=== PATIENT | female | born 1960 | race Two or more races ===

== ENCOUNTER 2024-11-12 12:21 | Inpatient (IN) | payer OTHER ==
[~2024-11-12] VITALS: Ht 165.1 cm; Wt 107.5 kg
[2024-11-12 07:45] VITALS: PULSE 92; RESP 17; O2SAT 99
--- NOTE | 2024-11-12 12:37 | ED.PDOC ---
History of Present Illness HPI Comments 64-year-old female brought in by EMS presents with a chief complaint of abdominal pain with associated nausea and vomiting. Patient states that her pain is localized to her right quadrant abdomen region, non-radiating, non- exertional, and states that her pain is rated a burning 10/10 at this time. Patient mentions that onset of abdominal pain started at 0300 this morning. Patient mentions that she has had some nausea and vomiting episodes since the pain started. Time Seen by MD: 12:25 Reviewed Notes: Medications, Allergies Allergies: Coded Allergies: No Known Drug Allergy (Verified Allergy, Unknown, 11/12/24) Information Source: Patient, Emergency Med Personnel Mode of Arrival: EMS Severity: Moderate Timing: Hours Duration: Since onset Prehospital treatment: Shoes Salesperson Past Medical History PAST MEDICAL HISTORY: PE Surgical History: Denies all surgeries PUBLIC HEALTH ASSISTANT History: Denies all PUBLIC HEALTH ASSISTANT Hx Family History Family History: Reviewed,noncontributory to illness Social History Smoker: Non-Smoker Alcohol: Denies ETOH Use Drugs: Denies Drug Use Lives In: Home Constitutional: denies: chills, diaphoresis, fatigue, fever, malaise, sweats, weakness, others EENTM: denies: blurred vision, double vision, ear bleeding, ear discharge, ear drainage, ear pain, ear ringing, eye pain, eye redness, hearing loss, mouth pain, mouth swelling, nasal discharge, nose bleeding, nose congestion, nose pain, photophobia, tearing, throat pain, throat swelling, voice changes, others Respiratory: denies: cough, hemoptysis, orthopnea, SOB at rest, shortness of breath, SOB with excertion, stridor, wheezing, others Cardiovascular: denies: chest pain, dizzy spells, diaphoresis, Dyspnea on exertion, edema, irregular heart beat, left arm pain, lightheadedness, palpitations, PND, syncope, others Gastrointestinal: reports: abdominal pain, nausea, vomiting; denies: abdomen distended, blood streaked bowels, constipated, diarrhea, dysphagia, difficulty swallowing, hematemesis, melena, poor appetite, poor fluid intake, rectal bleeding, rectal pain, others Genitourinary: denies: abnormal vagina bleeding, burning, dyspareunia, dysuria, flank pain, frequency, hematuria, incontinence, pain, , vagina discharge, urgency, others Neurological: denies: dizziness, fainting, headache, left sided numbness, left sided weakness, numbness, paresthesia, pre-existing deficit, right sided numbness, right sided weakness, seizure, speech problems, tingling, tremors, weakness, others Musculoskeletal: denies: back pain, gout, joint pain, joint swelling, muscle pain, muscle stiffness, neck pain, others Integumetry: denies: bruises, change in color, change in hair/nails, dryness, laceration, lesions, lumps, rash, wounds, others Allergic/Immunocompromised: denies: Difficulty Healing, Frequent Infections, Hives, Itching, others Hematologic/Lymphatic: denies: anemia, blood clots, easy bleeding, easy bruising, swollen glands, others Endocrine: denies: excessive hunger, excessive sweating, excessive thirst, excessive urination, flushing, intolerance to cold, intolerance to heat, unexplained weight gain, unexplained weight loss, others Psychiatric: denies: anxiety, bipolar disorder, depression, hopeless, panic disorder, schizophrenia, sleepless, suicidal, others All Other Systems: Reviewed and Negative Physical Exam General Appearance: Moderate Distress, Normal HEENT: Normal ENT Inspection, Pharynx Normal, TMs Normal Neck: Full Range of Motion, Non-Tender, Normal, Normal Inspection Respiratory: Chest Non-Tender, Lungs Clear, No Accessory Muscle Use, No Respiratory Distress, Normal Breath Sounds Cardiovascular: No Edema, No JVD, No Murmur, No Gallop, Normal Peripheral Pulses, Regular Rate/Rhythm Breast Exam: Deferred Gastrointestinal: Diffuse, No Organomegaly, No Pulsatile Mass, Normal Bowel Sounds, Soft Genitalia: Deferred Pelvic: Deferred Rectal: Deferred Extremities: No calf tenderness, Normal capillary refill, Normal inspection, Normal range of motion, Non-tender, No pedal edema Musculoskeletal : Apperance: Normal Neurologic: Alert, nautical instrument mechanic II-XII nml as Tested, No Motor Deficits, Normal Affect, Normal Mood, No Sensory Deficits Cerebellar Function: NOT DONE Reflexes: NOT DONE Skin: Dry, Normal Color, Warm Peripheral Pulses: 3+ Radial (R), 3+ Radial (L) Lymphatic: No Adenopathy Was a procedure done? Was a procedure done?: No Differential Dx Considerations may include: Colitis Electrolyte imbalance X-Ray, Labs, Meds, VS Vital Signs Date Time Temp Pulse Resp B/P (MAP) Pulse Ox O2 Delivery O2 Flow Rate FiO2 11/12/24 14:11 111 18 109/61 11/12/24 14:01 111 18 98 Room Air 11/12/24 14:01 98.7 78 18 109/61 (77) 98 98.7 11/12/24 12:51 98.6 96 27 148/89 99 98.6 Lab Test 11/12/24 16:11 11/12/24 16:03 11/12/24 14:36 11/12/24 12:42 Range/Units Urine Color Pending Urine Clarity Pending Urine pH Pending Urine Specific [place] Pending Urine Protein Pending Urine Ketones Pending Urine Blood Pending Urine Nitrite Pending Urine Bilirubin Pending Urine Urobilinogen Pending Urine Leukocyte Esterase Pending Urine Glucose Pending Lactic Acid Level 3.1 *H 3.7 *H 0.4-2.0 mmol/L White Blood Count 17.0 H 4.4-10.8 10^3/uL Red Blood Count 4.78 4.0-5.20 10^6/uL Hemoglobin 15.6 12.2-16.2 g/dL Hematocrit 46.3 H 36.0-46.0 % Mean Corpuscular Volume 96.9 80.0-100.0 fL Mean Corpuscular Hemoglobin 32.6 H 28.0-32.0 pg Mean Corpuscular Hemoglobin Concent 33.6 32.0-36.0 g/dL Red Cell Distribution Width 15.7 H 11.8-14.3 % Platelet Count 375 140-450 10^3/uL Mean Platelet Volume 7.9 6.9-10.8 fL Neutrophils (%) (Auto) 91.6 H 37.0-80.0 % Lymphocytes (%) (Auto) 5.0 L 10.0-50.0 % Monocytes (%) (Auto) 3.2 0.0-12.0 % Eosinophils (%) (Auto) 0.1 0.0-7.0 % Basophils (%) (Auto) 0.1 0.0-2.0 % Neutrophils # (Auto) 15.6 H 1.6-8.6 10 ^3/uL Lymphocytes # (Auto) 0.9 0.4-5.4 10 ^3/uL Monocytes # (Auto) 0.5 0-1.3 10 ^3/uL Eosinophils # (Auto) 0 0-0.8 10 ^3/uL Basophils # (Auto) 0 0-0.2 10 ^3/uL Nucleated Red Blood Cells 0.0 % Prothrombin Time 10.9 9.3-11.8 sec Prothrombin Time INR 1.03 0.9-1.15 Sodium Level 139 136-145 mmol/L Potassium Level 3.4 L 3.5-5.1 mmol/L Chloride Level 103 98-107 mmol/L Carbon Dioxide Level 19 L 20-31 mmol/L Anion Gap 17 H 5-15 Blood Urea Nitrogen 8 L 9-23 mg/dL Creatinine 1.08 H 0.550-1.02 mg/dL Glomerular Filtration Rate Calc 57 >90 mL/min BUN/Creatinine Ratio 7.4 L 10.0-20.0 Serum Glucose 156 H 74-106 mg/dL Calcium Level 9.4 8.7-10.4 mg/dL Current Medications Medications (Trade) Dose Ordered Sig/Cindy Route Start Time Stop Time Status Last Admin Morphine Sulfate 4 mg ONCE ONCE IV 11/12/24 12:30 11/12/24 12:31 DC 11/12/24 14:11 Ondansetron HCl (Zofran) 4 mg ONCE ONCE IV 11/12/24 12:30 11/12/24 12:31 DC 11/12/24 14:10 Sodium Chloride 1,000 ml @ 1,000 mls/hr Q1H ONCE IV 11/12/24 14:30 11/12/24 15:29 DC 11/12/24 15:18 Piperacillin Sod/ Tazobactam Sod 100 ml @ 100 mls/hr ONCE ONCE IV 11/12/24 14:30 11/12/24 15:29 DC 11/12/24 14:30 Metronidazole 100 ml @ 100 mls/hr ONCE ONCE IV 11/12/24 15:15 11/12/24 16:14 DC 11/12/24 15:18 Patient alert. Complaining of abdominal pain. Abdomen is soft tender. Vitals stable. Establish intravenous access. Was given morphine. Was given Zofran. Explained to the patient. Continue monitoring. Surgeon at bedside. She is more tender than when she two the ER. Localized in the right lower quadrant. Surgeon did state that she needs to have the appendix removed. She is going to be taken to the OR for appendectomy. Preparing the patient NPO coagulation studies. Patient unstable for transfer because has a possible dependence can rupture. She has localized. Patient he is aware of her current situation. [place] approved inpatient admission [id number]. Time of 1ST Reevaluation: 12:55 Reevaluation 1ST: Unchanged Patient Education/Counseling: Diagnosis, Treatment, Need For Follow Up Family Education/Counseling: No Family Present SEPSIS Sepsis Screen Physician Orders Ct Ab Pel Wo Con-No Oral Or Iv (11/12/24 12:28) Electrocardigram (11/12/24 12:40) Sodium Chloride 0.9% (11/12/24 14:30) Blood Culture (11/12/24 14:24) * Surgical Consult (11/12/24 ) Urinalysis W/Out Microscopic (11/12/24 16:11) Npo (Nothing By Mouth) Diet (11/12/24 Dinner) Obtain Consent For: (11/12/24 16:27) Obtain Consent For Anesthesia (11/12/24 16:27) Vital Signs Date Time Temp Pulse Resp B/P (MAP) Pulse Ox O2 Delivery O2 Flow Rate FiO2 11/12/24 14:11 111 18 109/61 11/12/24 14:01 111 18 98 Room Air 11/12/24 14:01 98.7 78 18 109/61 (77) 98 98.7 11/12/24 12:51 98.6 96 27 148/89 99 98.6 Laboratory Tests Test 11/12/24 12:42 11/12/24 14:36 11/12/24 16:03 White Blood Count 17.0 10^3/uL (4.4-10.8) H Lactic Acid Level 3.7 mmol/L (0.4-2.0) *H 3.1 mmol/L (0.4-2.0) *H Medications Medications Dose Ordered Sig/Cindy Route Start Time Stop Time Status Last Admin Dose Admin Metronidazole 100 ml @ 100 mls/hr ONCE ONCE IV 11/12/24 15:15 11/12/24 16:14 DC 11/12/24 15:18 Morphine Sulfate 4 mg ONCE ONCE IV 11/12/24 12:30 11/12/24 12:31 DC 11/12/24 14:11 Ondansetron HCl 4 mg ONCE ONCE IV 11/12/24 12:30 11/12/24 12:31 DC 11/12/24 14:10 Piperacillin Sod/ Tazobactam Sod 100 ml @ 100 mls/hr ONCE ONCE IV 11/12/24 14:30 11/12/24 15:29 DC 11/12/24 14:30 Sodium Chloride 1,000 ml @ 1,000 mls/hr Q1H ONCE IV 11/12/24 14:30 11/12/24 15:29 DC 11/12/24 15:18 Departure 1 Departure Time of Disposition: 12:39 Impression: Primary Impression: Sepsis, unspecified organism Qualified Codes: A41.9 - Sepsis, unspecified organism Additional Impressions: Acute abdominal pain Acute appendicitis Qualified Codes: K35.80 - Unspecified acute appendicitis Disposition: ADMITTED INPATIENT Admit to: Med Surg Condition: Guarded Critical Care Note Critical Care Time?: No Stability Stability form required: No Heart Score Heart Score: Heart Score Response (Comments) Value History N/A 0 EKG N/A 0 Age N/A 0 Risk Factors N/A 0 Troponin N/A 0 Total 0 I personally scribed for JULIANA TRAVIS MD ([email or web address]) on 11/12/24 at 12:37. Electronically submitted by Christos Montemayor ([email or web address]). JULIANA TRAVIS MD Nov 12, 2024 12:37
[2024-11-12 12:56] LABS: Hematocrit 46.3 % (36.0-46.0); Hemoglobin 15.6 g/dL (12.2-16.2); Mean Corpuscular Hemoglobin 32.6 pg (28.0-32.0); Mean Corpuscular Volume 96.9 fL (80.0-100.0); Nucleated Red Blood Cells % 0.0 %
[2024-11-12 13:06] LABS: Chloride 103 mmol/L (98-107); Potassium 3.4 mmol/L (3.5-5.1); Sodium 139 mmol/L (136-145)
[2024-11-12 13:07] LABS: Anion Gap 17 (5-15); Calcium 9.4 mg/dL (8.7-10.4)
[2024-11-12 13:08] LABS: Carbon Dioxide 19 mmol/L (20-31)
[2024-11-12 13:12] LABS: BUN/Creatinine Ratio 7.4 (10.0-20.0)
[2024-11-12 13:13] LABS: Blood Urea Nitrogen 8 mg/dL (9-23); Glucose 156 mg/dL (74-106)
[2024-11-12] MEDS: ONDANSETRON HCL 4 MG/2 ML VIAL IV ONE (14:10)
[2024-11-12] MEDS: MORPHINE SULFATE 4 MG/ML SYR/VIAL IV ONE ×2 (14:11→19:42)
[2024-11-12] MEDS: SODIUM CHLORIDE 0.9% 1,000 ML IV ONE ×3 (14:30→20:56)
[2024-11-12] MEDS: PIPERACILLIN-TAZOB 3.375GM 100 ML IV ONE (14:30)
[2024-11-12 15:10] LABS: Lactic Acid w/Reflex 3.7 mmol/L (0.4-2.0)
--- NOTE | 2024-11-12 15:12 | DVH ---
Indication: severeepigastrictenderness Technique: CT axial images of the abdomen and pelvis are obtained without contrast. Coronal and sagit arlene reformats were obtained. Radiation Dose Information: CTDI volume is 22.25 mGy. Dose-length product is 1287.77 mGy*cm Comparison: None FINDINGS: There is limited interpretation of the abdomen and pelvis without administration of intravenous contr ast. Lung bases demonstrate pulmonary emphysematous changes. Bilateral atelectasis. Adrenal glands, spleen, pancreas, liver unremarkable in shape. No CT evidence for cholelithiasis. There is no hydronephrosis, nephrolithiasis. The stomach is partially distended. Small bowel loops are normal in caliber. Moderate volume stool in the colon. The appendix is enlarged measuring 9 mm in diameter. Periappendi ceal stranding. Abdominal aortic atherosclerotic disease. Bladder partially distended. Calcified uterine leiomyomas. Right ovarian / adnexal cystic lesion measuring 5.7 cm. No free pelvic fluid. No inguinal lymphaden opathy. Chronic L3 compression fracture deformity 40% loss height. Moderate thoracolumbar degenerative disc disease IMPRESSION: Limited evaluation without contrast. Acute appendicitis. Right ovarian cystic lesion measuring 5.7 cm. Recommend pelvic ultrasound to evaluate. Findings communicated to charge nurse Kerry at 3:13 p.m. On 11/12/2024.
--- NOTE | 2024-11-12 16:27 | DVHINCON2 ---
Date of service: Nov 12, 2024 Allergies: Coded Allergies: No Known Drug Allergy (Verified Allergy, Unknown, 11/12/24) Vital Signs Vital Signs Date Time Temp Pulse Resp B/P (MAP) Pulse Ox O2 Delivery O2 Flow Rate FiO2 11/12/24 14:11 111 18 109/61 11/12/24 14:01 98 Room Air 11/12/24 14:01 98.7 98.7 Labs/Diagnostic Data Labs Test 11/12/24 16:11 11/12/24 16:03 11/12/24 12:42 11/12/24 12:28 Range/Units White Blood Count 17.0 H 4.4-10.8 10^3/uL Red Blood Count 4.78 4.0-5.20 10^6/uL Hemoglobin 15.6 12.2-16.2 g/dL Hematocrit 46.3 H 36.0-46.0 % Mean Corpuscular Volume 96.9 80.0-100.0 fL Mean Corpuscular Hemoglobin 32.6 H 28.0-32.0 pg Mean Corpuscular Hemoglobin Concent 33.6 32.0-36.0 g/dL Red Cell Distribution Width 15.7 H 11.8-14.3 % Platelet Count 375 140-450 10^3/uL Mean Platelet Volume 7.9 6.9-10.8 fL Neutrophils (%) (Auto) 91.6 H 37.0-80.0 % Lymphocytes (%) (Auto) 5.0 L 10.0-50.0 % Monocytes (%) (Auto) 3.2 0.0-12.0 % Eosinophils (%) (Auto) 0.1 0.0-7.0 % Basophils (%) (Auto) 0.1 0.0-2.0 % Neutrophils # (Auto) 15.6 H 1.6-8.6 10 ^3/uL Lymphocytes # (Auto) 0.9 0.4-5.4 10 ^3/uL Monocytes # (Auto) 0.5 0-1.3 10 ^3/uL Eosinophils # (Auto) 0 0-0.8 10 ^3/uL Basophils # (Auto) 0 0-0.2 10 ^3/uL Nucleated Red Blood Cells 0.0 % Sodium Level 139 136-145 mmol/L Potassium Level 3.4 L 3.5-5.1 mmol/L Chloride Level 103 98-107 mmol/L Carbon Dioxide Level 19 L 20-31 mmol/L Anion Gap 17 H 5-15 Blood Urea Nitrogen 8 L 9-23 mg/dL Creatinine 1.08 H 0.550-1.02 mg/dL Glomerular Filtration Rate Calc 57 >90 mL/min BUN/Creatinine Ratio 7.4 L 10.0-20.0 Serum Glucose 156 H 74-106 mg/dL Calcium Level 9.4 8.7-10.4 mg/dL Assessment [id number] RLQ PAIN AC APPENDICITIS ON ANTICOAGULATION FOR DVT DID NOT TAKE BLOOD THINNER TODAY CONSIDER EMERGENT SURGERY BENEFITS RISKS DISCUSSED PT CONSENTS Plan discussed with: Patient CLAUDIA NUNN MD Nov 12, 2024 16:27
[2024-11-12 16:49] LABS: INR 1.03 (0.9-1.15); Prothrombin Time 10.9 sec (9.3-11.8)
--- NOTE | 2024-11-12 16:55 | DVHINCON2 ---
DATE OF CONSULTATION: 11/12/2024 HISTORY OF PRESENT ILLNESS: This patient is referred to me from the Emergency Room with right lower quadrant pain starting this morning. She has some nausea and vomiting. No constipation or diarrhea. No hematemesis or melena. No bleeding per rectum. No fever or chills. PAST MEDICAL HISTORY: PE. PAST SURGICAL HISTORY: No significant surgical history. PHYSICAL EXAMINATION: VITAL SIGNS: Afebrile. Stable signs. HEENT: With no evidence of pallor, cyanosis, or jaundice. NECK: Supple, nontender with no thyromegaly or lymphadenopathy. CHEST AND LUNGS: Clear. HEART: Within normal limits. ABDOMEN: Soft. Tender in the right lower quadrant with evidence of rebound. EXTREMITIES: Unremarkable. NEUROLOGIC: Intact. CLINICAL IMPRESSION: Acute appendicitis, confirmed radiologically as well. PLAN: Needs to consider laparoscopic possible open appendectomy and the benefits and risks have been discussed. She also is on a blood thinner Xarelto, but she did not take the Xarelto for the last 2 days and the plan would be to consider surgery emergently. MD ALFONSO Magaña/BILLIE TID: [id number] RECEIPT: [id number] cc: Jhon Alejandro MD
[2024-11-12 18:24] VITALS: PULSE 87; RESP 18; O2SAT 98
[2024-11-12] MEDS ORDERED: ONDANSETRON HCL 4 MG/2 ML VIAL IV PRN (19:15)
[2024-11-12 19:31] VITALS: PULSE 92; RESP 14; O2SAT 97
--- NOTE | 2024-11-12 19:42 | DVH ---
CHEST RADIOGRAPH Indication: preop Technique: Single frontal view of the chest was obtained Comparison: None FINDINGS: Lines and Tubes: None Lungs: Poor inspiratory effort Pleura: No effusion. No pneumothorax. Cardiomediastinal contours: Unremarkable Bones: No acute osseous abnormality. IMPRESSION: 1. No acute cardiopulmonary disease.
[2024-11-12] MEDS: PANTOPRAZOLE 40 MG/10 ML VIAL INJ IV ONE (20:55)
--- NOTE | 2024-11-12 21:24 | DVHHP2 ---
History of Present Illness Reason for Visit: Abdominal pain History of Present Illness 64-year-old female presents for evaluation of abdominal pain. Patient endorses a one day history of sharp right lower quadrant abdominal pain with associated nausea, vomiting and chills. Currently rates the pain at 7/10 intensity. Past Medical History Pulmonary embolism Past Surgical History Denies Family History Noncontributory Smoke: No ALCOHOL: none Drugs: None Lives: with Family Review of Systems Review of Systems Review of systems are currently negative otherwise addressed in HPI. Allergies: Coded Allergies: No Known Drug Allergy (Verified Allergy, Unknown, 11/12/24) Medications Current Medications Medications Dose Ordered Sig/Cindy Route Start Time Stop Time Status Last Admin Dose Admin Metronidazole 100 ml @ 100 mls/hr Q8HR IV 11/12/24 22:00 Ceftriaxone Sodium 50 ml @ 100 mls/hr DAILY@09 IV 11/13/24 09:00 Pantoprazole Sodium 40 mg DAILY IV 11/13/24 10:00 Ondansetron HCl 4 mg Q4HP PRN IV 11/12/24 19:15 Morphine Sulfate 2 mg Q4HPRN PRN IV 11/12/24 19:15 Exam Vital Signs Vital Signs Date Time Temp Pulse Resp B/P (MAP) Pulse Ox O2 Delivery O2 Flow Rate FiO2 11/12/24 19:31 92 14 97 Room Air* 0 21 11/12/24 19:31 98.5 132/66 (88) 98.5 Exam Gen: 64-year-old female in mild distress Skin: Warm, dry, normal color and texture, no rash. HEENT: Normocephalic atraumatic, mucous membranes moist and pink. Neck: Cervical and supraclavicular nodes normal without enlargement, trachea is midline, thyroid gland is normal without masses. Pulmonary: Clear to auscultation and percussion bilaterally. Cardiac: Regular rate and rhythm. No murmur Abdomen: Soft, n right lower quadrant tenderness, nondistended, bowel sounds present all 4 quadrants, no guarding, no rigidity, no organomegaly. Extremities: No cyanosis, clubbing, no edema Neuro: Cranial nerves II through XII grossly intact, normal affect and speech, no focal motor deficits. Labs/Xrays ORDERING PHYSICIAN: BECCA LEWIS PROCEDURE(s): CXR1 - CHEST XRAY 1 VIEW REASON: preop ORDER NUMBER(s): [id number], ACCESSION NUMBER(s): [id number] CHEST RADIOGRAPH Indication: preop Technique: Single frontal view of the chest was obtained Comparison: None FINDINGS: Lines and Tubes: None Lungs: Poor inspiratory effort Pleura: No effusion. No pneumothorax. Cardiomediastinal contours: Unremarkable Bones: No acute osseous abnormality. IMPRESSION: 1. No acute cardiopulmonary disease. RING PHYSICIAN: JULIANA TRAVIS MD PROCEDURE(s): ABPL - CT AB PEL WO CON-NO ORAL OR IV REASON: severeepigastrictenderness ORDER NUMBER(s): [id number], ACCESSION NUMBER(s): [id number] Indication: severeepigastrictenderness Technique: CT axial images of the abdomen and pelvis are obtained without contrast. Coronal and sagittal reformats were obtained. Radiation Dose Information: CTDI volume is 22.25 mGy. Dose-length product is 1287.77 mGy*cm Comparison: None FINDINGS: There is limited interpretation of the abdomen and pelvis without administration of intravenous contrast. Lung bases demonstrate pulmonary emphysematous changes. Bilateral atelectasis. Adrenal glands, spleen, pancreas, liver unremarkable in shape. No CT evidence for cholelithiasis. There is no hydronephrosis, nephrolithiasis. The stomach is partially distended. Small bowel loops are normal in caliber. Moderate volume stool in the colon. The appendix is enlarged measuring 9 mm in diameter. Periappendiceal stranding. Abdominal aortic atherosclerotic disease. Bladder partially distended. Calcified uterine leiomyomas. Right ovarian / adnexal cystic lesion measuring 5.7 cm. No free pelvic fluid. No inguinal lymphadenopathy. Chronic L3 compression fracture deformity 40% loss height. Moderate thoracolumbar degenerative disc disease IMPRESSION: Limited evaluation without contrast. Acute appendicitis. Right ovarian cystic lesion measuring 5.7 cm. Recommend pelvic ultrasound to evaluate. Findings communicated to charge nurse Kerry at 3:13 p.m. On 11/12/2024. Labs Test 11/12/24 16:11 11/12/24 16:03 11/12/24 12:42 Range/Units Lactic Acid Level 3.1 *H 0.4-2.0 mmol/L White Blood Count 17.0 H 4.4-10.8 10^3/uL Red Blood Count 4.78 4.0-5.20 10^6/uL Hemoglobin 15.6 12.2-16.2 g/dL Hematocrit 46.3 H 36.0-46.0 % Mean Corpuscular Volume 96.9 80.0-100.0 fL Mean Corpuscular Hemoglobin 32.6 H 28.0-32.0 pg Mean Corpuscular Hemoglobin Concent 33.6 32.0-36.0 g/dL Red Cell Distribution Width 15.7 H 11.8-14.3 % Platelet Count 375 140-450 10^3/uL Mean Platelet Volume 7.9 6.9-10.8 fL Neutrophils (%) (Auto) 91.6 H 37.0-80.0 % Lymphocytes (%) (Auto) 5.0 L 10.0-50.0 % Monocytes (%) (Auto) 3.2 0.0-12.0 % Eosinophils (%) (Auto) 0.1 0.0-7.0 % Basophils (%) (Auto) 0.1 0.0-2.0 % Neutrophils # (Auto) 15.6 H 1.6-8.6 10 ^3/uL Lymphocytes # (Auto) 0.9 0.4-5.4 10 ^3/uL Monocytes # (Auto) 0.5 0-1.3 10 ^3/uL Eosinophils # (Auto) 0 0-0.8 10 ^3/uL Basophils # (Auto) 0 0-0.2 10 ^3/uL Nucleated Red Blood Cells 0.0 % Prothrombin Time 10.9 9.3-11.8 sec Prothrombin Time INR 1.03 0.9-1.15 Sodium Level 139 136-145 mmol/L Potassium Level 3.4 L 3.5-5.1 mmol/L Chloride Level 103 98-107 mmol/L Carbon Dioxide Level 19 L 20-31 mmol/L Anion Gap 17 H 5-15 Blood Urea Nitrogen 8 L 9-23 mg/dL Creatinine 1.08 H 0.550-1.02 mg/dL Glomerular Filtration Rate Calc 57 >90 mL/min BUN/Creatinine Ratio 7.4 L 10.0-20.0 Serum Glucose 156 H 74-106 mg/dL Calcium Level 9.4 8.7-10.4 mg/dL SEPSIS Sepsis Screen Date sepsis recognized/suspect: Nov 12, 2024 Time Sepsis recognized/suspect: 2012 Recent Procedure: No On Antibiotic Therapy: No Respiratory Rate >20: No Heart Rate >90: Yes Temp<36 C (96.8 F) or >38.3 C: No SBP <90 or MAP <65 mmHG: No New Acute Mental Status Change: No Is the patient on CPAP, BIPAP,: No Physician Orders Blood Culture (11/12/24 14:24) * Surgical Consult (11/12/24 ) Urinalysis W/Out Microscopic (11/12/24 16:11) Npo (Nothing By Mouth) Diet (11/12/24 Dinner) Obtain Consent For: (11/12/24 16:27) Obtain Consent For Anesthesia (11/12/24 16:27) Sodium Chloride 0.9% (11/12/24 19:15) Type And Screen (11/12/24 19:13) Chest Xray 1 View (11/12/24 19:13) Metronidazole 500mg/100ml (Flagyl 500mg/ (11/12/24 22:00) Ceftriaxone 1gm/50ml (Rocephin) (11/13/24 09:00) Pantoprazole (Protonix) (11/13/24 10:00) Basic Metabolic Panel (11/13/24 04:00) Admit (11/12/24 19:13) Ondansetron Hcl (Zofran) (11/12/24 19:15) Complete Blood Count (11/13/24 04:00) Condition: Stable (11/12/24 19:13) Bedrest With Bathroom Privileg (11/12/24 19:13) Morphine Sulfate Injection (11/12/24 19:15) Antibody Identification (11/12/24 19:28) Vital Signs Date Time Temp Pulse Resp B/P (MAP) Pulse Ox O2 Delivery O2 Flow Rate FiO2 11/12/24 19:31 92 14 97 Room Air* 0 11/12/24 19:31 98.5 92 14 132/66 (88) 97 98.5 11/12/24 18:24 87 18 98 Room Air* 0 11/12/24 18:18 98.2 87 14 128/70 (89) 98 98.2 11/12/24 14:11 111 18 109/61 11/12/24 14:01 111 18 98 Room Air 11/12/24 14:01 98.7 78 18 109/61 (77) 98 98.7 Laboratory Tests Test 11/12/24 12:42 11/12/24 14:36 11/12/24 16:03 White Blood Count 17.0 10^3/uL (4.4-10.8) H Lactic Acid Level 3.7 mmol/L (0.4-2.0) *H 3.1 mmol/L (0.4-2.0) *H Medications Medications Dose Ordered Sig/Cindy Route Start Time Stop Time Status Last Admin Dose Admin Metronidazole 100 ml @ 100 mls/hr ONCE ONCE IV 11/12/24 15:15 11/12/24 16:14 DC 11/12/24 15:18 100 MLS/HR Morphine Sulfate 4 mg ONCE ONCE IV 11/12/24 12:30 11/12/24 12:31 DC 11/12/24 14:11 4 MG Ondansetron HCl 4 mg ONCE ONCE IV 11/12/24 12:30 11/12/24 12:31 DC 11/12/24 14:10 4 MG Pantoprazole Sodium 40 mg ONCE ONCE IV 11/12/24 19:15 11/12/24 19:28 DC 11/12/24 20:55 40 MG Piperacillin Sod/ Tazobactam Sod 100 ml @ 100 mls/hr ONCE ONCE IV 11/12/24 14:30 11/12/24 15:29 DC 11/12/24 14:30 100 MLS/HR Sodium Chloride 1,000 ml @ 100 mls/hr Q10H ONCE IV 11/12/24 19:15 11/13/24 05:14 11/12/24 20:56 100 MLS/HR Sodium Chloride 1,000 ml @ 1,000 mls/hr Q1H ONCE IV 11/12/24 14:30 11/12/24 15:29 DC 11/12/24 15:18 1,000 MLS/HR Assessment/Plan Assessment/Plan Assessment Acute abdominal pain Acute appendicitis Leukocytosis Obesity Plan Admit the patient to [facility] to the hospitalist Chad/Flagyl Surgical consultation Pain management NPO Continue treatment per orders. Plan discussed with: Patient My Orders Orders - BECCA LEWIS Procedure Category Date Status Time Sodium Chloride 0.9% PHA 11/12/24 In Process 19:15 Type And Screen BBK 11/12/24 In Process 19:13 Chest Xray 1 View XY 11/12/24 Resulted 19:13 Metronidazole PHA 11/12/24 In Process 500mg/100ml (Flagyl 22:00 Ceftriaxone 1gm/50ml PHA 11/13/24 In Process (Rocephin) 09:00 Pantoprazole PHA 11/13/24 In Process (Protonix) 10:00 Basic Metabolic Panel LAB 11/13/24 Verified 04:00 Admit ADMIT 11/12/24 Transmitted 19:13 Ondansetron Hcl PHA 11/12/24 In Process (Zofran) 19:15 Complete Blood Count LAB 11/13/24 Verified 04:00 Condition: Stable THOMAS 11/12/24 In Process 19:13 Bedrest With Bathroom THOMAS 11/12/24 In Process Privileg 19:13 Morphine Sulfate PHA 11/12/24 In Process Injection 19:15 Antibody BBK 11/12/24 In Process Identification 19:28 Date of Service: Nov 12, 2024 Billing Provider: BECCA LEWIS Common Visit Codes: [id number] INP/OBS CARE (MOD) BECCA LEWIS Nov 12, 2024 21:24
[2024-11-12] MEDS: MORPHINE SULFATE INJ 2 MG/ml SYRG IV PRN (21:41)
[2024-11-13] VITALS (10 sets, daily range): BP systolic 102–134; BP diastolic 48–68; PULSE 70–94; RESP 15–20; TEMP 97.9–98.4; O2SAT 94–100
[2024-11-13 05:52] LABS: Hematocrit 38.9 % (36.0-46.0); Hemoglobin 13.2 g/dL (12.2-16.2); Mean Corpuscular Hemoglobin 33.4 pg (28.0-32.0); Mean Corpuscular Volume 98.8 fL (80.0-100.0); Nucleated Red Blood Cells % 0.0 %
[2024-11-13 06:02] LABS: Sodium 140 mmol/L (136-145)
[2024-11-13 06:03] LABS: Anion Gap 10 (5-15); Carbon Dioxide 22 mmol/L (20-31)
[2024-11-13 06:08] LABS: BUN/Creatinine Ratio 7.8 (10.0-20.0); Glucose 104 mg/dL (74-106)
[2024-11-13 06:10] LABS: Blood Urea Nitrogen 9 mg/dL (9-23); Calcium 8.3 mg/dL (8.7-10.4); Chloride 108 mmol/L (98-107); Potassium 3.5 mmol/L (3.5-5.1)
[2024-11-13] MEDS: PANTOPRAZOLE 40 MG/10 ML VIAL INJ IV SCH (08:25)
[2024-11-13] MEDS ORDERED: CITA-73 PO (09:15)
--- NOTE | 2024-11-13 12:27 | DVHPN2 ---
Progress Note Date Seen: Nov 13, 2024 Medical Necessity Reason Pt with a Central, PICC or Fol: No Subjective Patient reports: No new complaints Review of Systems: HEENT:Normal, CVS:Normal, RESPIRATORY:Normal, GI:Normal, :Normal, MSK:Normal, NEURO:Normal Objective vital signs Vital Sign Date Time Temp Pulse Resp B/P (MAP) Pulse Ox O2 Delivery O2 Flow Rate FiO2 11/13/24 09:00 97.9 71 20 102/48 (66) 99 97.9 11/13/24 07:15 Room Air* 0 21 medications Current Medications Medications Dose Ordered Sig/Cindy Route Start Time Stop Time Status Last Admin Dose Admin Metronidazole 100 ml @ 100 mls/hr Q8HR IV 11/12/24 22:00 11/13/24 05:18 100 MLS/HR Ceftriaxone Sodium 50 ml @ 100 mls/hr DAILY@09 IV 11/13/24 09:00 11/13/24 08:00 100 MLS/HR Pantoprazole Sodium 40 mg DAILY IV 11/13/24 10:00 11/13/24 08:25 40 MG Ondansetron HCl 4 mg Q4HP PRN IV 11/12/24 19:15 Morphine Sulfate 2 mg Q4HPRN PRN IV 11/12/24 19:15 11/12/24 21:41 2 MG Examination: GENERAL:Normal, HEENT:Normal, NECK:Normal, LUNGS:Normal, CVS:Normal, ABDOMEN:Normal, MSK:Normal, MSK:Abnormal (abd tenderness), SKIN:Normal, NEURO:Normal, :Normal laboratory and microbiology Laboratory Tests 11/13/24 05:30 Test 11/13/24 05:30 Range/Units Serum Glucose 104 74-106 mg/dL Problem List/Assessment/Plan Problem List/Assessment/Plan #1 acute appy with sepsis: iv antibiotics, surg today #2 obesity #3 h/o pe: xarelto on hold advance care planning- full code- time spent 18 mins Plan discussed with: Patient Date of Service: Nov 13, 2024 Billing Provider: BECCA MORAN MD Common Visit Codes: [id number] INP/OBS CARE(HIGH) Secondary Visit Codes: [id number] CARE PLAN 30 MINUTES BECCA MORAN MD Nov 13, 2024 12:27
[2024-11-13] MEDS ORDERED: HYDROcodone-ACET 5/325MG TAB PO PRN (12:30)
[2024-11-13] MEDS ORDERED: ACETAMINOPHEN 325 MG TAB PO PRN (12:30)
[2024-11-13] MEDS ORDERED: PROPOFOL 10 MG/ML 20 ML IV ONE (14:02)
[2024-11-13] MEDS ORDERED: ROCURONIUM 10MG/ML 10ML VIAL IV ONE (14:02)
[2024-11-13] MEDS ORDERED: fentaNYL CITRATE 100 MCG/2 ML VL ONE (14:02)
[2024-11-13] MEDS ORDERED: MIDAZOLAM HCL 2MG/2ML 2ml VIAL (1mg/ml) ONE (14:02)
[2024-11-13] MEDS ORDERED: METOCLOPRAMIDE HCL 5MG/ml INJ 2ml VIAL ONE (14:03)
[2024-11-13] MEDS ORDERED: ONDANSETRON HCL 4 MG/2 ML VIAL ONE (14:03)
[2024-11-13] MEDS ORDERED: HYDROmorphone HCL 2 MG/ML VL/or syr ONE (14:21)
[2024-11-13] MEDS: ceFAZolin 2 GM/D5W50ml 50 ML IV ONE (14:25)
[2024-11-13] MEDS ORDERED: SUGAMMADEX 200mg/2ml Vial (100MG/ML) IV ONE (14:30)
[2024-11-13] MEDS: BUPIVACAINE HCL 0.25% P/F 10 ML VIAL ONE (14:55)
[2024-11-13] MEDS: SODIUM CHLORIDE 0.9% 1,000 ML IV SCH (15:00)
--- NOTE | 2024-11-13 15:08 | DVHOP2 ---
Operative Report [id number] AC APPENDICITIS LAP APPENDECTOMY EBL 5 CC NO DRAINS NO COMPLICATIONS CLAUDIA NUNN MD Nov 13, 2024 15:08
[2024-11-13] MEDS: KETOROLAC TROMETH 30 MG/ML 1ML VIAL IV ONE (15:15)
[2024-11-13] MEDS ORDERED: ONDANSETRON HCL 4 MG/2 ML VIAL IV PRN (15:15)
[2024-11-13] MEDS ORDERED: HYDROmorphone HCL 2 MG/ML VL/or syr IV PRN (15:15)
--- NOTE | 2024-11-13 16:09 | DVHOP ---
DATE OF SURGERY: 11/13/2024 PREOPERATIVE DIAGNOSIS: Acute appendicitis. POSTOPERATIVE DIAGNOSIS: Acute appendicitis. PROCEDURE: Laparoscopic appendectomy. SURGEON: Dipak Kelly MD FRONT END WHEEL LOADER OPERATOR: None. ANESTHESIA: General. ESTIMATED BLOOD LOSS: Close to 5 mL. DRAINS: No drains were used. COMPLICATIONS: No complications were encountered. DESCRIPTION OF PROCEDURE: The patient was prepped and draped in the usual sterile fashion in the supine position. A supraumbilical incision was applied and was taken down to the fascia. The Veress needle was introduced and CO2 insufflation was started to a pressure of 15 mmHg. The needle was withdrawn and replaced by the 12 mm trocar. The telescope was introduced and the appendix was found to be acutely inflamed. Two 5 mm ports were applied, one above the symphysis pubis and the other one in between the two. The camera was moved to the lower most 5 mm port. The upper 2 ports were used for surgery and the patient was placed in Trendelenburg and right upper lateral position. The mesoappendix was identified. The base of the appendix was identified. It was transected using the Endo SCOT stapling device. The mesoappendix was divided using the Endo SCOT stapling device. The appendix was released in this fashion and was retrieved from the supraumbilical wound in an EndoCatch bag without any complication. Hemostasis was secured. Irrigation fluid was removed. The port sites were free from bleeding. An EndoClose suture was used for the fascial closure of the supraumbilical wound. All the ports were withdrawn after all the CO2 was let out and the patient was placed in supine. The wounds were then brought together using 3-0 Monocryl suture in a subcuticular fashion. Surgical glue was applied. The patient tolerated the procedure well. He was taken back to the recovery room in stable condition. Dipak Kelly MD RG/SHAUN TID: [id number] RECEIPT: [id number] cc: Panchito Norman NP, Panchito Walker MD
[2024-11-14] VITALS (8 sets, daily range): BP systolic 107–144; BP diastolic 64–83; PULSE 75–87; RESP 16–18; TEMP 97.7–98.7; O2SAT 96–97
[2024-11-14 07:19] LABS: Hematocrit 36.3 % (36.0-46.0); Hemoglobin 12.3 g/dL (12.2-16.2); Mean Corpuscular Hemoglobin 33.6 pg (28.0-32.0); Mean Corpuscular Volume 98.8 fL (80.0-100.0); Nucleated Red Blood Cells % 0.0 %
[2024-11-14 07:29] LABS: Alanine Aminotransferase 14 U/L (7-40); Alkaline Phosphatase 88 U/L (46-116); Anion Gap 10 (5-15); Carbon Dioxide 22 mmol/L (20-31); Potassium 3.9 mmol/L (3.5-5.1); Sodium 140 mmol/L (136-145); Total Protein 6.0 g/dL (5.7-8.2)
[2024-11-14 07:30] LABS: Albumin 3.4 g/dL (3.2-4.8); Bilirubin, Total 0.3 mg/dL (0.2-1.0)
[2024-11-14 07:31] LABS: BUN/Creatinine Ratio 5.6 (10.0-20.0); Blood Urea Nitrogen < 5 mg/dL (9-23); Calcium 8.2 mg/dL (8.7-10.4); Chloride 108 mmol/L (98-107); Glucose 113 mg/dL (74-106)
--- NOTE | 2024-11-14 10:06 | DVHPN2 ---
Progress Note Date Seen: Nov 14, 2024 Medical Necessity Reason Pt with a Central, PICC or Fol: No Objective vital signs Vital Sign Date Time Temp Pulse Resp B/P (MAP) Pulse Ox O2 Delivery O2 Flow Rate FiO2 11/14/24 08:48 97.8 77 17 144/83 (103) 97 97.8 11/14/24 08:00 Room Air* 0 21 Total Intake and Output 11/13/24 11/13/24 11/14/24 15:00 23:00 07:00 Intake Total 300 ml 0 ml 800 ml Balance 300 ml 0 ml 800 ml medications Current Medications Medications Dose Ordered Sig/Cindy Route Start Time Stop Time Status Last Admin Dose Admin Metronidazole 100 ml @ 100 mls/hr Q8HR IV 11/12/24 22:00 11/14/24 05:46 100 MLS/HR Ceftriaxone Sodium 50 ml @ 100 mls/hr DAILY@09 IV 11/13/24 09:00 11/14/24 08:55 100 MLS/HR Pantoprazole Sodium 40 mg DAILY IV 11/13/24 10:00 11/14/24 08:55 40 MG Ondansetron HCl 4 mg Q4HP PRN IV 11/12/24 19:15 Morphine Sulfate 2 mg Q4HPRN PRN IV 11/12/24 19:15 11/12/24 21:41 2 MG Sodium Chloride 1,000 ml @ 100 mls/hr Q10H IV 11/13/24 12:30 11/14/24 08:55 100 MLS/HR Acetaminophen/ Hydrocodone Bitart 1 tab Q6HPRN PRN PO 11/13/24 12:30 Acetaminophen 650 mg Q6HP PRN PO 11/13/24 12:30 laboratory and microbiology Laboratory Tests 11/14/24 06:13 Test 11/14/24 06:13 Range/Units Serum Glucose 113 H 74-106 mg/dL Microbiology Date/Time Source Procedure Growth Status 11/12/24 14:36 Blood Blood Culture - Preliminary NO GROWTH AFTER 24 HOURS OF INCUBATION. Resulted Problem List/Assessment/Plan Problem List/Assessment/Plan AFEBRILE VSS ABD SOFT WOUNDS HEALING JOSE CLEAR LIQUIDS ADVANCE DIET JOSE OP FINDINGS DISCUSSED NURSE AT BEDSIDE CLEARED FOR DISCHARGE INSTRUCTIONS RE DIET ACTIVITY F/UP GIVEN Plan discussed with: Patient My Orders My Orders Orders - CLAUDIA NUNN MD Procedure Category Date Status Time Clear Liq Diet DIET 11/13/24 Transmitted Lunch CLAUDIA NUNN MD Nov 14, 2024 10:06
--- NOTE | 2024-11-14 10:57 | DVHPN2 ---
Progress Note Date Seen: Nov 14, 2024 Medical Necessity Reason Pt with a Central, PICC or Fol: No Subjective Patient reports: No new complaints Review of Systems: HEENT:Normal, CVS:Normal, RESPIRATORY:Normal, GI:Normal, :Normal, MSK:Normal, NEURO:Normal Objective vital signs Vital Sign Date Time Temp Pulse Resp B/P (MAP) Pulse Ox O2 Delivery O2 Flow Rate FiO2 11/14/24 08:48 97.8 77 17 144/83 (103) 97 97.8 11/14/24 08:00 Room Air* 0 21 Total Intake and Output 11/13/24 11/13/24 11/14/24 15:00 23:00 07:00 Intake Total 300 ml 0 ml 800 ml Balance 300 ml 0 ml 800 ml medications Current Medications Medications Dose Ordered Sig/Cindy Route Start Time Stop Time Status Last Admin Dose Admin Metronidazole 100 ml @ 100 mls/hr Q8HR IV 11/12/24 22:00 11/14/24 05:46 100 MLS/HR Ceftriaxone Sodium 50 ml @ 100 mls/hr DAILY@09 IV 11/13/24 09:00 11/14/24 08:55 100 MLS/HR Pantoprazole Sodium 40 mg DAILY IV 11/13/24 10:00 11/14/24 08:55 40 MG Ondansetron HCl 4 mg Q4HP PRN IV 11/12/24 19:15 Morphine Sulfate 2 mg Q4HPRN PRN IV 11/12/24 19:15 11/12/24 21:41 2 MG Sodium Chloride 1,000 ml @ 100 mls/hr Q10H IV 11/13/24 12:30 11/14/24 08:55 100 MLS/HR Acetaminophen/ Hydrocodone Bitart 1 tab Q6HPRN PRN PO 11/13/24 12:30 Acetaminophen 650 mg Q6HP PRN PO 11/13/24 12:30 Examination: GENERAL:Normal, HEENT:Normal, NECK:Normal, LUNGS:Normal, CVS:Normal, ABDOMEN:Normal, MSK:Normal, SKIN:Normal, NEURO:Normal, :Normal laboratory and microbiology Laboratory Tests 11/14/24 06:13 Test 11/14/24 06:13 Range/Units Serum Glucose 113 H 74-106 mg/dL Microbiology Date/Time Source Procedure Growth Status 11/12/24 14:36 Blood Blood Culture - Preliminary NO GROWTH AFTER 24 HOURS OF INCUBATION. Resulted Problem List/Assessment/Plan Problem List/Assessment/Plan #1 acute appy with sepsis s/p appy: iv antibiotics #2 obesity #3 h/o pe: xarelto on hold unstable for transfer advance care planning- full code- time spent 18 mins Plan discussed with: Patient My Orders My Orders Orders - BECCA MORAN MD Procedure Category Date Status Time Sodium Chloride 0.9% PHA 11/13/24 In Process 12:30 Hydrocodone-Acet PHA 11/13/24 In Process 5/325mg Tab (Bouse 12:30 Acetaminophen Tablet PHA 11/13/24 In Process (Tylenol Tablet) 12:30 Date of Service: Nov 14, 2024 Billing Provider: BECCA MORAN MD Common Visit Codes: [id number] INP/OBS CARE(HIGH) BECCA MORAN MD Nov 14, 2024 10:57
[2024-11-14] MEDS: SODIUM CHLORIDE 0.9% 1,000 ML IV SCH (12:14)
[2024-11-14] MEDS: DOCUSATE SOD 100 MG CAP PO ONE (12:14)
--- NOTE | 2024-11-14 17:16 | DVH ---
Technique: Real-time ultrasound imaging, with color Doppler and compression of the common femoral v ein, femoral vein, greater saphenous vein, and popliteal vein. Indication: pain to left leg Comparison: None Findings: There is thrombus in the distal left common femoral vein and left saphenofemoral junction. The left superficial femoral vein, left popliteal vein, posterior tibial veins are compressible and d emonstrate color flow. Impression: Deep vein thrombosis within the distal left common femoral vein. Occlusive superficial vein thrombus of the left saphenofemoral junction extending into the left common femoral vein.
[2024-11-14] MEDS: RIVAROXABAN 20 MG TAB PO SCH (18:19)
[2024-11-14] MEDS ORDERED: LEVO150T10 PO (18:23)
[2024-11-14] MEDS ORDERED: RIVA20TA PO (18:23)
[2024-11-14] MEDS ORDERED: OME20GT PO (18:23)
[2024-11-14] MEDS: DOCUSATE SOD 100 MG CAP PO SCH (21:28)
[2024-11-15] VITALS (7 sets, daily range): BP systolic 109–143; BP diastolic 70–90; PULSE 67–101; RESP 17–19; TEMP 97.4–98.6; O2SAT 95–97
[2024-11-15 05:57] LABS: Potassium 3.7 mmol/L (3.5-5.1); Sodium 143 mmol/L (136-145)
[2024-11-15 05:58] LABS: Anion Gap 9 (5-15); Calcium 8.0 mg/dL (8.7-10.4); Carbon Dioxide 23 mmol/L (20-31); Chloride 111 mmol/L (98-107)
[2024-11-15 06:03] LABS: Glucose 101 mg/dL (74-106); Hematocrit 37.2 % (36.0-46.0); Hemoglobin 12.1 g/dL (12.2-16.2); Mean Corpuscular Hemoglobin 33.7 pg (28.0-32.0); Mean Corpuscular Volume 103.4 fL (80.0-100.0)
[2024-11-15 06:04] LABS: BUN/Creatinine Ratio 4.5 (10.0-20.0); Blood Urea Nitrogen < 5 mg/dL (9-23)
[2024-11-15 06:56] LABS: Macrocytosis Slight; Total Cells Counted 100.0 (100)
[2024-11-15] MEDS: LEVOTHYROXINE SODIUM 50 MCG TAB PO ONE (11:00)
--- NOTE | 2024-11-15 11:00 | DVHPN2 ---
Progress Note Date Seen: Nov 15, 2024 Medical Necessity Reason Pt with a Central, PICC or Fol: No Subjective Patient reports: No new complaints Review of Systems: HEENT:Normal, CVS:Normal, RESPIRATORY:Normal, GI:Normal, :Normal, MSK:Normal, NEURO:Normal Objective vital signs Vital Sign Date Time Temp Pulse Resp B/P (MAP) Pulse Ox O2 Delivery O2 Flow Rate FiO2 11/15/24 09:00 98.1 67 17 130/78 (95) 97 98.1 11/15/24 08:05 Room Air* 0 21 Total Intake and Output 11/14/24 11/14/24 11/15/24 15:00 23:00 07:00 Intake Total 250 ml 950 ml 675 ml Balance 250 ml 950 ml 675 ml medications Current Medications Medications Dose Ordered Sig/Cindy Route Start Time Stop Time Status Last Admin Dose Admin Metronidazole 100 ml @ 100 mls/hr Q8HR IV 11/12/24 22:00 11/15/24 05:35 100 MLS/HR Ceftriaxone Sodium 50 ml @ 100 mls/hr DAILY@09 IV 11/13/24 09:00 11/15/24 08:50 100 MLS/HR Pantoprazole Sodium 40 mg DAILY IV 11/13/24 10:00 11/15/24 08:49 40 MG Ondansetron HCl 4 mg Q4HP PRN IV 11/12/24 19:15 Morphine Sulfate 2 mg Q4HPRN PRN IV 11/12/24 19:15 11/12/24 21:41 2 MG Acetaminophen/ Hydrocodone Bitart 1 tab Q6HPRN PRN PO 11/13/24 12:30 Acetaminophen 650 mg Q6HP PRN PO 11/13/24 12:30 Sodium Chloride 1,000 ml @ 75 mls/hr [id number] IV 11/14/24 11:00 11/15/24 03:14 75 MLS/HR Docusate Sodium 100 mg BID PO 11/14/24 22:00 11/15/24 08:49 100 MG Rivaroxaban 20 mg QPM PO 11/14/24 18:00 11/14/24 18:19 20 MG Examination: GENERAL:Normal, HEENT:Normal, NECK:Normal, LUNGS:Normal, CVS:Normal, ABDOMEN:Normal, MSK:Normal, MSK:Abnormal (left leg swelling), SKIN:Normal, NEURO:Normal, :Normal laboratory and microbiology Laboratory Tests 11/15/24 05:35 Test 11/15/24 05:35 Range/Units Serum Glucose 101 74-106 mg/dL Microbiology Date/Time Source Procedure Growth Status 11/12/24 14:36 Blood Blood Culture - Preliminary NO GROWTH AFTER 48 HOURS OF INCUBATION. Resulted Problem List/Assessment/Plan Problem List/Assessment/Plan #1 acute appy with sepsis s/p appy: iv antibiotics #2 obesity #3 h/o pe: xarelto #4 left leg dvt: ir consult #5 hypothyroidism: check tsh unstable for transfer advance care planning- full code- time spent 18 mins Plan discussed with: Patient My Orders My Orders Orders - BECCA MORAN MD Procedure Category Date Status Time Lt Lower Dvt US 11/14/24 Resulted 16:15 Date of Service: Nov 15, 2024 Billing Provider: BECCA MORAN MD Common Visit Codes: [id number] INP/OBS CARE(HIGH) BECCA MORAN MD Nov 15, 2024 11:00
[2024-11-15] MEDS: ENOXAPARIN SOD 100 MG/1 ML SYRINGE SC ONE (11:55)
[2024-11-15] MEDS: ENOXAPARIN SOD 100 MG/1 ML SYRINGE SC SCH (21:01)
[2024-11-16 01:00] VITALS: BP 132/75; PULSE 88; RESP 18; TEMP 98.7; O2SAT 95
[2024-11-16 05:00] VITALS: BP 108/59; PULSE 103; RESP 18; TEMP 98.5; O2SAT 98
[2024-11-16] MEDS: LEVOTHYROXINE SODIUM 50 MCG TAB PO SCH (05:32)
[2024-11-16 07:25] LABS: Hematocrit 37.2 % (36.0-46.0); Hemoglobin 12.7 g/dL (12.2-16.2); Mean Corpuscular Hemoglobin 33.4 pg (28.0-32.0); Mean Corpuscular Volume 97.9 fL (80.0-100.0); Nucleated Red Blood Cells % 0.1 %
[2024-11-16 07:28] LABS: Sodium 140 mmol/L (136-145)
[2024-11-16 07:29] LABS: Anion Gap 9 (5-15); Carbon Dioxide 24 mmol/L (20-31)
[2024-11-16 07:34] LABS: BUN/Creatinine Ratio 7.7 (10.0-20.0); Glucose 95 mg/dL (74-106)
[2024-11-16 07:36] LABS: Blood Urea Nitrogen 7 mg/dL (9-23); Calcium 8.3 mg/dL (8.7-10.4); Chloride 107 mmol/L (98-107); Potassium 3.4 mmol/L (3.5-5.1)
[2024-11-16 08:00] VITALS: PULSE 76; RESP 17; O2SAT 98
[2024-11-16 09:00] VITALS: BP 145/83; PULSE 76; RESP 17; TEMP 97.9; O2SAT 98
[2024-11-16 13:00] VITALS: BP 138/97; PULSE 78; RESP 16; TEMP 97.8; O2SAT 97
[2024-11-16] MEDS ORDERED: ENO100SY SC (15:24)
[2024-11-16] MEDS ORDERED: CEPH500T PO (15:24)
[2024-11-16] MEDS ORDERED: RIVA20TA PO (15:24)
--- NOTE | 2024-11-16 15:33 | DVHDS ---
DATE OF DISCHARGE: 11/16/2024 HISTORY OF PRESENT ILLNESS: The patient is a 64-year-old lady who was admitted with history of abdominal pain and has previous history of pulmonary embolism. HOSPITAL COURSE: The patient had a CT of abdomen and pelvis that showed evidence of acute appendicitis. The patient also had a right ovarian cyst. The patient was seen in surgical consult by Dr. Kelly. The patient underwent appendectomy on 11/13/2024. The patient also had a Doppler of lower extremity that showed a DVT involving the deep vein of the distal left femoral vein. She was started on treatment with Lovenox. The patient's white count improved from 17,000 on admission to 5000 at time of discharge. Her TSH was 28.86. The patient now will be discharged home to resume her home medication as well as to be on Lovenox 100 mg sub-Q b.i.d. for 5 days and cephalexin 500 mg t.i.d. for 7 days. She is to resume Xarelto after the Lovenox shots and is to monitor her TSH. FINAL DIAGNOSES: Therefore: * Acute appendicitis with sepsis, status post appendectomy. * Left leg DVT. * History of PE. * Obesity. * Uncontrolled hypothyroidism. Time spent in discharge planning and review of plan with the patient and nursing was 39 minutes. MD COURTNEY Bazzi/DOMINIK TID: [id number] RECEIPT: [id number]
[2024-11-16] MEDS: POTASSIUM CHL 20 Meq TABLET PO ONE (16:20)
[2024-11-16 17:00] VITALS: BP 153/99; PULSE 60; RESP 18; TEMP 97.5; O2SAT 98
== END 2024-11-16 16:59 | disposition home or self-care (01) | DRG 854 ==
LOC: ER 12:21 → EDBD 12:21 → OVERFLOW 19:13 → EAST 11-13 15:58
PROVIDERS: ADMIT Internal Medicine; ATTEND Internal Medicine
PROC: 0DTJ4ZZ Resection of Appendix, Percutaneous Endoscopic Approach (ICD-10-PCS; principal; 2024-11-13 13:59)
DX: A41.9 Sepsis, unspecified organism (principal); I82.412 Acute embolism and thrombosis of left femoral vein; K35.80 Unspecified acute appendicitis; E66.9 Obesity, unspecified; E03.9 Hypothyroidism, unspecified; Z68.39 Body mass index [BMI] 39.0-39.9, adult
CPT/HCPCS: 36415; 71045; 74176; 80048; 80053; 83605; 84443; 85007; 85025; 85027; 85610; 86850; 86870; 86900; 86901; 87040; 93971; 96365; 96375; G0378; J2250; J2405; J2470; J2543; J2704; J3490